=== PATIENT | female | born 1955 | race African-American/Black ===

== ENCOUNTER 2019-12-02 14:10 | Outpatient (CLI) | payer MEDICARE ==
--- NOTE | 2019-12-02 14:41 | ULT ---
Left lower extremity venous Doppler ultrasound: 12/02/2019 COMPARISON: None HISTORY: Left lower extremity pain for 3 months TECHNIQUE: Multiplanar grayscale sonographic imaging of the venous structures of the left lower extre mity obtained with color flow and spectral analysis FINDINGS: Left common femoral vein, greater saphenous vein, profunda femoral vein, femoral vein, popl iteal vein, and posterior tibial vein are patent. Normal blood flow, augmentation, and compression within the deep venous system on the left. No evidence for deep venous thrombosis. IMPRESSION: No evidence for deep venous thrombosis of the left lower extremity.
== END 2019-12-02 14:11 | disposition home or self-care (01) ==
LOC: BICULT 14:10
PROVIDERS: ATTEND Nurse Practitioner Family
DX: M25.562 Pain in left knee (principal)

== ENCOUNTER 2021-08-07 12:31 | Outpatient (CLI) | payer MEDICARE ==
[2021-08-08 01:46] LABS: SARS-CoV-2 PCR by NAA Not Detected (NotDetected)
== END 2021-08-07 12:32 | disposition home or self-care (01) ==
LOC: LABBT 12:31
PROVIDERS: ATTEND Surgery
DX: Z01.818 Encounter for other preprocedural examination (principal); C54.1 Malignant neoplasm of endometrium; Z20.822 Contact with and (suspected) exposure to COVID-19
CPT/HCPCS: 93005; U0003; U0005; 93010

== ENCOUNTER 2021-08-12 11:51 | Day surgery (SDC) | payer MEDICARE ==
[2021-08-09 11:27] VITALS: BMI 40.8
[2021-08-12] MEDS ORDERED: Bupivacaine 0.25% HCL 30 ML VIAL ONE (13:28)
[2021-08-12] MEDS ORDERED: Lidocaine 1% w/Epinephrine 1:100K 20 ML VIAL ONE (13:28)
[2021-08-12] MEDS ORDERED: Famotidine/PF 20 mg/2ml Vial ONE (13:38)
[2021-08-12] MEDS ORDERED: Midazolam HCl 2 mg/2 ml Vial ONE (13:38)
[2021-08-12] MEDS ORDERED: PROPOFOL 20 ML ONE (13:38)
[2021-08-12] MEDS ORDERED: PROPOFOL 200 MG/20 ML VIAL ONE (13:45)
[2021-08-12] MEDS ORDERED: Ondansetron PF 4 MG/2 ML Vial ONE (13:45)
[2021-08-12] MEDS ORDERED: Lidocaine 1% PF 5 ML VIAL ONE (13:45)
[2021-08-12] MEDS ORDERED: Metoclopramide HCl 10 MG/2 ML VIAL ONE (13:45)
== END 2021-08-12 15:30 | disposition home or self-care (01) ==
LOC: SDC 11:51
PROVIDERS: ATTEND Surgery
PROC: 02HV33Z Insertion of Infusion Device into Superior Vena Cava, Percutaneous Approach (ICD-10-PCS; principal; 2021-08-12)
DX: C54.1 Malignant neoplasm of endometrium (principal); I10 Essential (primary) hypertension; Z79.82 Long term (current) use of aspirin; Z79.899 Other long term (current) drug therapy; Z90.710 Acquired absence of both cervix and uterus
CPT/HCPCS: 71045; J1642; J2250; J2405; J2704; J2765; S0020; S0028